=== PATIENT | male | born 1930 | race Caucasian/White ===

== ENCOUNTER 2017-11-18 00:04 | Inpatient (IN) | payer MEDICARE ==
[~2017-11-18] VITALS: Ht 167.6 cm; Wt 92.7 kg
[~2017-11-18 00:04] MED LIST: ACET500 PO; Aspirin EC81 MG PO; B Complex-Foli1 EACH PO; BICA50 PO; BREO ELLIPTA 11 EACH IH; CVS DISPOSABLE399 ML PR; Citrate Of Mag300 ML PO; Colace100 MG PO; DICL250 PO; FINA5 PO; FISH1000 PO; FURO20 PO; FURO40 PO; GAVILAX17 GM PO; Garlic Oil1000 MG PO; HYDCHL25 PO; LOPE2C PO; MAGNESIUM HYDROXIDE PO; METO10 PO; Milk Of Ma400 MG/5 M PO; POTCHL10ER PO; PRAM.5 PO; PRAMIPEXOLE D0.25 MG PO; PRAV20 PO; Pravastatin Sod40 MG PO; Prinivil10 MG PO; RANI150 PO; ROPI.25 PO; SIME80CH PO; SPIR25 PO; Super B-50 Com1 EACH PO; TAMS.4ER PO; TIZANIDINE HCL2 MG PO; TRIPLE ANTIBIO1 EACH TOP; VITAMIN D34000 UNIT PO; [UNRECOGNIZED DRUG - OTHER] TOP
[2017-11-18 01:02] LABS: BASOPHILS ABSOLUTE AUTO 0.03 K/mm3 (0.00-0.23); BASOPHILS PERCENT AUTO 1 % (0-2); EOSINOPHILS PERCENT AUTO 2 % (0-6); Hematocrit 37.1 % (37.0-53.0); Hemoglobin 12.4 g/dL (13.5-17.5); IMMATURE GRAN ABSOLUTE AUTO 0.01 K/mm3 (0.00-0.10); IMMATURE GRAN PERCENT AUTO 0 % (0-1); LYMPHOCYTES ABSOLUTE AUTO 0.72 K/mm3 (0.84-5.20); LYMPHOCYTES PERCENT AUTO 12 % (21-46); MONOCYTES ABSOLUTE AUTO 0.52 K/mm3 (0.16-1.47); MONOCYTES PERCENT AUTO 9 % (4-13); Mean Corpuscular HGB 33.6 pg (26.0-34.0); Mean Corpuscular HGB Conc 33.4 g/dL (31.5-36.5); Mean Corpuscular Volume 101 fL (80-100); Mean Platelet Volume 9.9 fL (9.1-12.4); NEUTROPHILS ABSOLUTE AUTO 4.41 K/mm3 (1.96-9.15); NEUTROPHILS PERCENT AUTO 76 % (41-73); Platelet Count 143 K/mm3 (150-400); RDW Coefficient Variation 13.8 % (11.7-14.2); RDW Standard Deviation 50.6 fL (35.1-46.3); Red Blood Cell Count 3.69 M/mm3 (4.30-5.90); White Blood Cell Count 5.79 K/mm3 (4.00-11.30)
[2017-11-18 01:17] LABS: Alanine Aminotransfer (ALT/SGP 34 U/L (12-78); Albumin, Blood 3.5 g/dL (3.4-5.0); Albumin/Globulin Ratio 1.1 (0.8-1.8); Alk Phos 72 U/L (50-136); Anion Gap 8 mmol/L (6-16); Aspartate Aminotrans (AST/SGOT 35 U/L (12-37); Bilirubin, Total 0.6 mg/dL (0.1-1.0); Blood Urea Nitrogen 44 mg/dL (8-24); Bun/Creatinine Ratio 29.5 (12.0-20.0); CO2, Blood 27 mmol/L (21-32); Calcium, Blood 9.1 mg/dL (8.5-10.1); Chloride, Blood 108 mmol/L (98-108); Creatinine, Blood 1.49 mg/dL (0.60-1.20); Globulin, Blood 3.3 g/dL (2.2-4.0); Glomerular Filtration Rate 47 (60-); Glucose, Blood 110 mg/dL (70-99); Potassium, Blood 4.1 mmol/L (3.5-5.5); Sodium, Blood 143 mmol/L (136-145); Total Protein, Blood 6.8 g/dL (6.4-8.2); Troponin I <0.015 ng/mL (0.000-0.040)
[2017-11-18 02:06] LABS: Bilirubin, Urine Neg (Neg); Blood, Urine Neg (Neg); Glucose Qualitative, Urine Neg (Neg); Ketones, Urine Neg (Neg); Leukocyte Esterase, Urine Neg (Neg); Nitrite, Urine Neg (Neg); Protein, Urine Neg (Neg); Source, Urine Catheter; Specific Gravity, Urine 1.015 (1.003-1.022); Urobilinogen, Urine NORM (Normal)
[2017-11-18 02:10] LABS: Appearance, Urine Clear (Clear); Color, Urine Yellow (P-Yellow)
[2017-11-18] MEDS ORDERED: OLAN5 PO (07:22)
[2017-11-18] MEDS ORDERED: BACL20 (07:23)
[2017-11-18] MEDS ORDERED: GABA300 PO (07:24)
[2017-11-19 10:25] LABS: Hematocrit 34.9 % (37.0-53.0); Hemoglobin 11.5 g/dL (13.5-17.5); Mean Corpuscular HGB 33.1 pg (26.0-34.0); Mean Corpuscular Volume 101 fL (80-100); Mean Platelet Volume 9.8 fL (9.1-12.4); Platelet Count 102 K/mm3 (150-400); Red Blood Cell Count 3.47 M/mm3 (4.30-5.90); White Blood Cell Count 7.95 K/mm3 (4.00-11.30)
[2017-11-19 10:40] LABS: Albumin, Blood 3.1 g/dL (3.4-5.0); Bilirubin, Total 0.7 mg/dL (0.1-1.0); Bun/Creatinine Ratio 25.4 (12.0-20.0); Calcium, Blood 8.5 mg/dL (8.5-10.1); Creatinine, Blood 1.34 mg/dL (0.60-1.20); Globulin, Blood 3.1 g/dL (2.2-4.0); Total Protein, Blood 6.2 g/dL (6.4-8.2)
[2017-11-19 10:49] LABS: BASOPHILS PERCENT MAN 0 % (0-2); EOSINOPHILS PERCENT MAN 0 % (0-6); LYMPHOCYTES ABSOLUTE MAN 0.71 K/mm3 (0.84-5.20); LYMPHOCYTES PERCENT MAN 9 % (21-46); MONOCYTES ABSOLUTE MAN 0.23 K/mm3 (0.16-1.47); MONOCYTES PERCENT MAN 3 % (4-13); NEUTROPHILS ABSOLUTE MAN 6.99 K/mm3 (1.96-9.15); SEG NEUTROPHILS PERCENT MAN 88 % (41-73); TOTAL CELLS COUNTED 100
[2017-11-22] MEDS ORDERED: ATROPINE 0.01%-10 ML PO (11:12)
[2017-11-22] MEDS ORDERED: SCOPOLAMINE1 EACH TD (11:14)
[2017-11-22] MEDS ORDERED: FENTANYL1 EAC1 TOP (11:15)
[2017-11-22] MEDS ORDERED: Ativan1 MG PO (11:16)
[2017-11-22] MEDS ORDERED: MORP20L PO (11:16)
== END 2017-11-22 14:10 | disposition hospice, home (50) | DRG 884 ==
LOC: ER 00:04 → MEDS 02:43 → ENPENDDIS 11-22 09:51 → MEDS 11-22 14:10
PROVIDERS: Emergency Medicine; Internal Medicine
PROC: 3E0234Z Introduction of Serum, Toxoid and Vaccine into Muscle, Percutaneous Approach (ICD-10-PCS; principal; 2017-11-18)
DX: F03.91 Unspecified dementia, unspecified severity, with behavioral disturbance (principal); G93.49 Other encephalopathy; G62.9 Polyneuropathy, unspecified; R56.9 Unspecified convulsions; I67.2 Cerebral atherosclerosis; N18.3 Chronic kidney disease, stage 3 (moderate); E78.5 Hyperlipidemia, unspecified; R73.03 Prediabetes; Z23 Encounter for immunization; I70.8 Atherosclerosis of other arteries; G25.81 Restless legs syndrome; R33.9 Retention of urine, unspecified; Z66 Do not resuscitate; G14 Postpolio syndrome; H91.90 Unspecified hearing loss, unspecified ear; Z99.3 Dependence on wheelchair; Z51.5 Encounter for palliative care
CPT/HCPCS: 36415; 51701; 70450; 71010; 73523; 80053; 81003; 82947; 84484; 85025; 93005; 93010; 96374; 99285; J1170; J1650; J1953; J2060; J7030; J7042